=== PATIENT | female | born 1995 | race African-American/Black ===

== ENCOUNTER 2018-04-12 00:01 | Emergency (ER) | payer MEDICAID, OTHER ==
[~2018-04-12] VITALS: Ht 170.2 cm; Wt 65.0 kg
[2018-04-12] MEDS ORDERED: LIDOCAINE HCL 1% 20ML VIAL (Pyxis) INJ INFIL ONE (03:45)
[2018-04-12] MEDS ORDERED: LIDOCAINE HCL/PF 1% 10 MG/ML 5ML VIAL IJ NR (04:00)
[2018-04-12] MEDS ORDERED: ACETAMINOPHEN WITH CODEINE 300/30MG TABLET PO ONE (04:00)
[2018-04-12 04:18] VITALS: BP 115/64
== END 2018-04-12 04:19 | disposition home or self-care (01) ==
LOC: ER 00:01
DX: M79.644 Pain in right finger(s) (principal); L03.012 Cellulitis of left finger; L03.011 Cellulitis of right finger; R03.0 Elevated blood-pressure reading, without diagnosis of hypertension; F12.90 Cannabis use, unspecified, uncomplicated
CPT/HCPCS: 10060; 99283; J3490; Z7610

== ENCOUNTER 2020-11-04 08:24 | Emergency (ER) | payer MEDICAID, OTHER ==
[~2020-11-04] VITALS: Ht 170.2 cm; Wt 76.0 kg
[2020-11-04] MEDS ORDERED: ACETAMINOPHEN 325MG TABLET PO ONE (09:00)
[2020-11-04 09:05] VITALS: BP 146/91
[2020-11-04] MEDS ORDERED: TOBR5DRO2 LEFTEYE (09:27)
[2020-11-04] MEDS ORDERED: CEPH500C2 MT (09:28)
[2020-11-04] MEDS ORDERED: TOBRAMYCIN 0.3% OPHTH DROPS 5ML LEFTEYE SCH (09:30)
[2020-11-04] MEDS ORDERED: CEPHALEXIN 250MG CAPSULE PO ONE (09:30)
== END 2020-11-04 10:07 | disposition home or self-care (01) ==
LOC: ER 08:31
DX: H10.89 Other conjunctivitis (principal); L03.213 Periorbital cellulitis; F12.10 Cannabis abuse, uncomplicated
CPT/HCPCS: 99282

== ENCOUNTER 2020-11-06 09:27 | Emergency (ER) | payer MEDICAID ==
[~2020-11-06] VITALS: Ht 170.2 cm; Wt 82.0 kg
[~2020-11-06 09:27] MED LIST: CEPH500C2 MT; TOBR5DRO2 LEFTEYE
[2020-11-06] MEDS ORDERED: CIPR5DRO LEFTEYE (10:39)
[2020-11-06] MEDS ORDERED: IBUP-2029 PO (10:39)
[2020-11-06] MEDS ORDERED: DOXY100C2 PO (10:39)
[2020-11-06 10:59] VITALS: BP 141/90
== END 2020-11-06 11:02 | disposition home or self-care (01) ==
LOC: ER 09:27
DX: H10.32 Unspecified acute conjunctivitis, left eye (principal); F12.10 Cannabis abuse, uncomplicated
CPT/HCPCS: 99283

== ENCOUNTER 2021-04-07 04:57 | Emergency (ER) | payer MEDICAID ==
[~2021-04-07] VITALS: Ht 170.2 cm; Wt 88.0 kg
[~2021-04-07 04:57] MED LIST changes: +CIPR5DRO LEFTEYE; +DOXY100C5 PO; +IBUP-2029 PO
[2021-04-07 05:10] VITALS: BP 122/69
[2021-04-07] MEDS ORDERED: IBUPROFEN 800MG TABLET PO ONE (06:45)
== END 2021-04-07 07:53 | disposition home or self-care (01) ==
LOC: ER 04:57
DX: M25.521 Pain in right elbow (principal); I10 Essential (primary) hypertension; F12.10 Cannabis abuse, uncomplicated; Z79.899 Other long term (current) drug therapy
CPT/HCPCS: 73080; 81025; 99283

== ENCOUNTER 2023-07-02 22:40 | Emergency (ER) | payer MEDICAID ==
[~2023-07-02] VITALS: Ht 170.2 cm; Wt 73.0 kg
[2023-07-02 22:51] VITALS: BP 128/78; PULSE 66; RESP 14; TEMP 98.3; O2SAT 100
== END 2023-07-03 04:17 | disposition left against medical advice (07) ==
LOC: ER 22:40
DX: R07.89 Other chest pain (principal); Z53.21 Procedure and treatment not carried out due to patient leaving prior to being seen by health care provider
CPT/HCPCS: 99281

== ENCOUNTER 2023-09-29 23:15 | Emergency (ER) | payer MEDICAID ==
[~2023-09-29] VITALS: Ht 170.2 cm; Wt 69.0 kg
[2023-09-29 23:21] VITALS: TEMP 98.6; O2SAT 100
[2023-09-29 23:37] LABS: BASOPHILS % 0.4 % (0.0-2.0); EOSINOPHILS % 2.4 % (0.0-5.0); HEMATOCRIT. 34.8 % (36.0-48.0); HEMOGLOBIN. 11.6 g/dL (12.0-16.0); LYMPHOCYTES % 41.4 % (20.0-50.0); MEAN CORPUSCULAR HEMOGLOBIN 29.9 pg (28.0-32.0); MEAN CORPUSCULAR HGB CONC 33.5 g/dL (31.0-37.0); MEAN CORPUSCULAR VOLUME 89.4 fL (81.0-99.0); MEAN PLATELET VOLUME 8.5 fl (7.4-10.4); MONOCYTES % 9.1 % (2.0-8.0); NEUTROPHILS % 46.7 % (40.0-76.0); PLATELET 205 x1000/uL (130-400); RED BLOOD CELL COUNT 3.89 mill/uL (4.2-5.4); RED CELL DISTRIBUTION WIDTH 13.5 % (11.6-14.6); WHITE BLOOD COUNT 7.2 x1000/uL (4.5-11.0)
[2023-09-29 23:52] LABS: ALANINE AMINOTRANSFERASE 19 IU/L (10-49); ALBUMIN 4.9 g/dL (3.2-4.8); ASPARTATE AMINOTRANSFERASE 28 IU/L (<34); BILIRUBIN TOTAL 0.8 mg/dL (0.1-1.0); CARBON DIOXIDE 24 mEq/L (21-32); CHLORIDE 108 mEq/L (98-107); CREATININE 0.7 mg/dL (0.6-1.0); GLUCOSE 85 mg/dL (70-105); POTASSIUM 3.7 mEq/L (3.5-5.1); PROTEIN TOTAL 7.9 g/dL (6.0-8.3); SODIUM 138 mEq/L (136-145); UREA NITROGEN BLOOD 9 mg/dL (9-23)
[2023-09-29 23:52] LABS: CLARITY URINE CLOUDY (CLEAR); COLOR URINE YELLOW (YELLOW); GLUCOSE URINE NEGATIVE (NEGATIVE); KETONES URINE TRACE (NEGATIVE); LEUKOCYTE ESTERASE URINE 1+ (NEGATIVE); NITRITE URINE NEGATIVE (NEGATIVE); OCCULT BLOOD URINE NEGATIVE (NEGATIVE); PROTEIN URINE NEGATIVE (NEGATIVE); SPECIFIC GRAVITY URINE 1.023 (1.005-1.030)
[2023-09-30 00:03] LABS: HCG SCREEN NEGATIVE
[2023-09-30 00:15] LABS: BACTERIA URINE 1+; RBC URINE NONE SEEN /hpf (0-2); SQUAMOUS EPITHELIAL CELL URINE 2+ /lpf (RARE/1+)
[2023-09-30 02:00] VITALS: BP 152/88; PULSE 88; RESP 18
[2023-09-30] MEDS ORDERED: DOXY100T2 MT (04:19)
[2023-09-30] MEDS ORDERED: HYDR-4001 MT (04:19)
[2023-09-30] MEDS ORDERED: IBUP-2029 MT (04:19)
[2023-09-30] MEDS: CEFTRIAXONE 1GM/50ML 50 ML IV NR (05:05)
== END 2023-09-30 06:12 | disposition home or self-care (01) ==
LOC: ER 23:22
DX: N83.202 Unspecified ovarian cyst, left side (principal); N39.0 Urinary tract infection, site not specified; I10 Essential (primary) hypertension
CPT/HCPCS: 80053; 81003; 84703; 85025; 36415; 99285; 76830; 76856; 96365; J0696; Z7610

== ENCOUNTER 2023-12-08 13:23 | Emergency (ER) | payer MEDICAID ==
[~2023-12-08 13:23] MED LIST changes: +DOXY100T2 MT; +HYDR-4001 MT; +IBUP-2029 MT
== END 2023-12-08 14:10 | disposition left against medical advice (07) ==
LOC: ER 13:23
DX: R10.9 Unspecified abdominal pain (principal); Z53.21 Procedure and treatment not carried out due to patient leaving prior to being seen by health care provider

== ENCOUNTER 2025-01-01 16:53 | Emergency (ER) | payer SELFPAY ==
[~2025-01-01] VITALS: Ht 172.7 cm; Wt 75.0 kg
[2025-01-01 16:58] VITALS: O2SAT 99
[2025-01-01 19:05] VITALS: TEMP 37.2; O2SAT 100
[2025-01-01] MEDS: DEXAMETHASONE 4MG TABLET PO ONE (21:36)
[2025-01-01 21:41] VITALS: BP 155/87; PULSE 88; RESP 12
[2025-01-01] MEDS: KETOROLAC 30MG/ML VIAL IM ONE (21:41)
[2025-01-01] MEDS ORDERED: METH4TAB95 MT (22:11)
[2025-01-01 23:17] LABS: INFLUENZA TYPE A Presumptive Negative (Pres. Neg.); INFLUENZA TYPE B Presumptive Negative (Pres. Neg.)
== END 2025-01-01 22:43 | disposition home or self-care (01) ==
LOC: ER 16:53
DX: B34.9 Viral infection, unspecified (principal); R05.9 Cough, unspecified; R09.81 Nasal congestion; Z79.899 Other long term (current) drug therapy
CPT/HCPCS: 99283; 81025; 87804 ×2; 96372; J1885; J8540